=== PATIENT | female | born 1945 | race Caucasian/White ===

== ENCOUNTER 2016-12-29 17:35 | Inpatient (IN) ==
[2016-12-29] MEDS ORDERED: DUONEB (A & A) INH ONE (18:18)
--- NOTE | 2016-12-29 18:39 | PROVIDER DOCUMENTATION ---
HPI-Abdominal Pain/GI Problem - General Source: patient - History of Present Illness-ABD Nature of Presenting Problems: 71 y/o F complains of blood in stool that began this morning at 1am. Hx of polyps and hemorrhoids. Last scope was > 5 yrs and negative. Additinal complaints is COPD saying chest tightness. She states she will pass some blood when she coughs Pain Radiation: reports: no radiation Quality of Pain: reports: none Onset/Duration: reports: this morning Timing: reports: still present Modifying Factors: improves with: nothing Associated Symptoms: reports: cough. denies: diarrhea, nausea Dark Stools Present?: reports: bright red blood <William Richardson - Last Filed: 12/29/16 20:08> <Cali Colbert - Last Filed: 12/29/16 21:31> - General Chief Complaint: Rectal Bleeding Stated Complaint: BLOOD IN STOOLS Time Seen by Provider: 12/29/16 18:11 Allergies/Adverse Reactions: Patient Allergies Allergy/AdvReac Type Severity Reaction Status Date / Time No Known Allergies Allergy Verified 12/30/13 13:13 Home Medications: Home Medication List Medication Instructions Recorded Confirmed Last Taken Type ATORVAstatin [Lipitor] 40 mg PO QHS 12/30/13 10/31/14 Unknown History Albuterol 2.5MG/Ipratrop 0.5MG ml INH Q4-6H PRN PRN 12/30/13 10/31/14 Unknown History [Duoneb] Albuterol 2.5MG/Ipratrop 0.5MG 3 ml INH Q4H PRN PRN #120 neb 12/30/13 10/31/14 Unknown Rx [Duoneb] Clonazepam [Klonopin] 1 mg PO 12/30/13 10/31/14 Unknown History Review of Systems - Adult - REVIEW OF SYSTEMS - ADULT Constitutional: denies: chills, fever Eyes: reports: no symptoms reported Ears, Nose, Mouth & Throat: reports: no symptoms reported Cardiovascular: reports: no symptoms reported Respiratory: reports: cough, shortness of breath. denies: wheezing Gastrointestinal: reports: abdominal pain, rectal bleeding. denies: nausea, vomiting Genitourinary: reports: no symptoms reported Musculoskeletal: reports: no symptoms reported Integumentary: reports: no symptoms reported Neurological: reports: no symptoms reported Psychiatric: reports: no symptoms reported Endocrine: reports: no symptoms reported Hematologic/Lymphatic: reports: no symptoms reported Allergic/Immunologic: reports: no symptoms reported All Other Systems: Reviewed and Negative <Bala Richardsonin Filed: 12/29/16 20:08> Past History - Adult - PAST MEDICAL HISTORY-ADULT Review of Records: reports: Old Records Reviewed, Nursing Assessment Review, Medications Reviewed Major Childhood Illnesses: reports: denies history Cardiovascular: reports: denies history Respiratory: reports: COPD Gastrointestinal: reports: denies history Obstetrical/Gynecological: reports: denies history Genitourinary: reports: denies history Musculoskeletal: reports: denies history Neurological: reports: denies history Psychiatric: reports: denies history Endocrine/Immune: reports: denies history Other Conditions: reports: denies history - PRIOR SURGERIES/PROCEDURES Surgical/Procedure History: reports: cholecystectomy, hysterectomy - PRIOR HOSPITALIZATIONS Prior Hospitalizations: reports: none - IMMUNIZATION STATUS Childhood Immunizations: See Nurse Assessment Flu Vaccine: See Nurse Assessment - FAMILY HISTORY Family History: reviewed, not pertinent - SOCIAL HISTORY Smoking: cigarettes, less than 1 pack/day Substance Use: alcohol Alcohol Use Frequency: rarely Living Situation: family <William Richardson Filed: 12/29/16 20:08> Physical Exam-General - PHYSICAL EXAM-ADULT Initial Vital Signs Reviewed: Yes - CONSTITUTIONAL General Appearance: appears well, alert, no apparent distress - EYES Eyes: PERRL/EOMI, pink conjunctivae - HEAD, EARS, NOSE, MOUTH & THROAT HENMT: moist mucous membranes, normal ENT inspection, TMs normal, pharynx normal - NECK Neck: non-tender, full range of motion, supple, normal inspection - RESPIRATORY Respiratory: no respiratory distress, no accessory muscle use, decreased breath sounds (all lung field, Tight not moving much air). negative: wheezing - CARDIOVASCULAR Cardiovascular: normal peripheral pulses, regular rate, rhythm - GASTROINTESTINAL (ABDOMEN) Abdominal Exam: normal bowel sounds, non tender, soft - MUSCULOSKELETAL Back Exam: normal inspection, no CVA tenderness, no vertebral tenderness Extremity: normal range of motion, non-tender, normal gait, normal inspection - SKIN Integumentary: normal color, normal turgor, warm/dry - NEUROLOGIC Neurologic: grossly normal, no motor/sensory deficits - PSYCHIATRIC Psych/Mental Status: normal mood/affect, normal thought content, normal thought process, oriented x 3 <William Richardson - Last Filed: 12/29/16 20:08> - GENITOURINARY Rectal Exam: normal rectal tone, blood streaked stool, hemorrhoids, tenderness Hemoccult Exam: heme positive stool (candice red blood on exam) <Cali Colbert - Last Filed: 12/29/16 21:31> Progress - XRAY 1 XRAY Study: Chest Impression: Abnormal XRAY Interpretation: Increase heart silhouette, no acute finding per Dr Torres <William Richardson - Last Filed: 12/29/16 20:08> - REASSESSMENT Reassessment #1 Time Reassessed: 19:16 (Received call from lab that the hemeoccult card was testing negative however it appeared to be candice red blood on the card. environmental engineering technician states she believes the test is incorrect due to lubricant used during the rectal exam. Rectal exam had candice red blood.) - CT/MRI 1 CT Study: Abdomen, Pelvis Impression: Abnormal (Moderate to severe L colitis, particularly along descending colon, no abscess, no free air, colonic diverticulosis, tortuous and mildly ectatic aorta with atheromatous changes - radiology) - CONSULTS/PCP/HOSPITALIST Notification #1 *Consult/PCP/Hospitalist*: Dr. Nuñez (GI) Time Discussed: 21:21 Reason/Comments: Admit to [facility]. He will see her in the morning. #2 Consult: Dr. Cantu (PCP) Time Discussed: 21:28 Reason/Comments: Admit to [facility] <Cali Colbert - Last Filed: 12/29/16 21:31> Departure <William Richardson - Last Filed: 12/29/16 20:08> - Departure Time of Disposition Order: 21:25 Certified Medical Emergency: Emergent <Cali Colbert - Last Filed: 12/29/16 21:31> - Departure DIAGNOSIS: Colitis GI bleed Qualifiers: GI bleed type/associated pathology: unspecified gastrointestinal hemorrhage type Qualified Code(s): K92.2 - Gastrointestinal hemorrhage, unspecified Disposition: ADMITTED INPATIENT 09 Condition: Stable Referrals: None,PCP [Primary Care Provider] - Attestation - Scribe Verification/Attestation Scribe:: William Richardson Acting as Scribe for:: Cali Colbert Scribe documention review:: This chart was documented by a scribe and accurately reflects the service the provider performed and the decisions made by the provider. <William Richardson - Last Filed: 12/29/16 20:08> - Physician/ POWER Attestation Patient care was provided by Advanced Practice Provider:: Yes Advanced Practice Provider:: Cali Colbert Advanced Practice Provider documentation review:: The Mid-level provider documentation, treatment plan and medical decision making was reviewed by the physician who agrees with all treatment and medical decision making by the P. <Cali Colbert - Last Filed: 12/29/16 21:31> Physician Attestation - Physician Attestation I, the provider, attest to the following statement:: Cali Colbert Physician documentation Attestation:: This documentation recorded by the scribe accurately reflects the service I personally performed and the decisions made by me. <Cali Colbert - Last Filed: 12/29/16 21:31>
[2016-12-29 18:50] LABS: MANUAL DIFF NEEDED? NO
[2016-12-29 18:55] LABS: BASO% 0.1 % (0.0-0.8); EOS# 0.12 X1000 (0.0-0.7); EOS% 0.9 % (0.0-10.0); HEMOGLOBIN 13.9 g/dL (12.0-16.0); IMM GRAN# 0.02 X1000 (0.0-0.04); IMM GRAN% 0.1 % (0.0-0.5); LYMPH# 1.54 X1000 (1.2-3.4); LYMPH% 11.3 % (20.5-51.1); MCH 31.2 PG (27-31); MCHC 33.1 g/dL (33-37); MCV 94.4 FL (81-99); MONO# 0.98 X1000 (0.11-0.59); MONO% 7.2 % (1.7-9.3); MPV 10.5 FL (7.4-10.4); NEUT% 80.4 % (42.2-75.2); PLT 177 X1000 (130-400); RBC 4.45 XMIL (4.2-5.4)
[2016-12-29] MEDS: NS 1,000 ML IV PRN (18:57)
[2016-12-29 19:11] LABS: INR 1.01 (0.86-1.15); PROTIME 13.6 Seconds (12.1-15.5)
[2016-12-29 19:12] LABS: PTT PL 29.7 Seconds (22.6-43.9)
[2016-12-29 19:17] LABS: AGAP 11; ALKALINE PHOSPHATASE 93 U/L (32-104); BUN 17 mg/dL (8-22); CALCIUM 9.2 mg/dL (8.8-10.2); CHLORIDE 103 mmol/L (98-107); COSMO 281; GOT 28 U/L (10-30); GPT 29 U/L (10-36); POTASSIUM 4.1 mmol/L (3.5-5.1); SODIUM 140 mmol/L (136-145); TCO2 26 mmol/L (25-35); TOTAL PROTEIN 6.8 g/dL (6.3-8.3)
[2016-12-29] MEDS ORDERED: ZOSYN 3.375 GM/NS 50 ML IV ONE (21:09)
[2016-12-29] MEDS ORDERED: FLAGYL 500 MG/NS 100 ML IV ONE (21:09)
[2016-12-29] MEDS ORDERED: SODIUM CHLORIDE 0.9% INJ ONE (21:10)
[2016-12-29] MEDS ORDERED: PROTONIX IV ONE (21:10)
[2016-12-29] MEDS ORDERED: ZOFRAN IV PRN (21:28)
[2016-12-30 05:57] LABS: MANUAL DIFF NEEDED? NO
--- NOTE | 2016-12-30 08:19 | Diag Imaging Result Document ---
PROCEDURE NAME: CHEST-2 VIEWS - 12/29/2016 FRONTAL AND LATERAL CHEST, TWO VIEWS: COMPARISON: 10/31/2016. FINDINGS: There are peripherally calcified bilateral breast implants. The lungs are well expanded. The heart is mildly prominent. There are mild increased interstitial markings. No consolidation. No pleural effusions. Mild compression fracture to a mid thoracic vertebra. This is unchanged. IMPRESSION: I believe there is a combination of fibrosis and mild pulmonary edema, but no pneumonia.
--- NOTE | 2016-12-30 08:30 | Diag Imaging Result Document ---
PROCEDURE NAME: CT ABD/PELVIS W/ IV CONT ONLY - 12/29/2016 CT ABDOMEN AND PELVIS WITH INTRAVENOUS CONTRAST. DOSE REDUCTION PROTOCOL. FINDINGS: The heart is mildly enlarged. On the very first image is a 10 mm nodule versus vascular prominence. Normal spleen and adrenal glands. No abnormality to the pancreas or gallbladder. Normal liver. Normal enhancement of the kidneys. No hydronephrosis. Tortuous abdominal aorta with mild dilatation measuring 3.0 cm. No bowel obstruction. There is thickening to the wall of the descending and proximal sigmoid colon with mild adjacent inflammation. There are scattered diverticula throughout the colon. No inflammation about the appendix. The appendix measures 7 mm in diameter. No free air. The urinary bladder is distended and appears normal. The uterus has been removed. No pelvic mass. IMPRESSION: 1. Colitis primarily involving the descending colon. 2. Small abdominal aortic aneurysm. 3. Diverticulosis. 4. Hysterectomy. 5. There appears to be a nodule in the right lower lobe. Chest CT is suggested. A preliminary report was given at 8:29 p.m..
[2016-12-30 09:52] LABS: BASO% 0.2 % (0.0-0.8); EOS# 0.16 X1000 (0.0-0.7); EOS% 1.6 % (0.0-10.0); HEMATOCRIT 41.1 % (37.0-47.0); HEMOGLOBIN 13.1 g/dL (12.0-16.0); IMM GRAN# 0.01 X1000 (0.0-0.04); IMM GRAN% 0.1 % (0.0-0.5); LYMPH# 2.01 X1000 (1.2-3.4); LYMPH% 19.9 % (20.5-51.1); MCH 30.8 PG (27-31); MCHC 31.9 g/dL (33-37); MCV 96.5 FL (81-99); MONO# 0.79 X1000 (0.11-0.59); MONO% 7.8 % (1.7-9.3); MPV 10.7 FL (7.4-10.4); NEUT% 70.4 % (42.2-75.2); PLT 146 X1000 (130-400); RBC 4.26 XMIL (4.2-5.4)
[2016-12-30] MEDS: NORCO-5 PO PRN (11:50)
[2016-12-30] MEDS: NS 1,000 ML IV PRN ×2 (12:21→21:54)
--- NOTE | 2016-12-30 15:27 | Diag Imaging Result Document ---
PROCEDURE NAME: CT THORAX W/CONTRAST - 12/30/2016 CT CHEST WITH IV CONTRAST: COMPARISON: None available. FINDINGS: There are fairly extensive emphysematous changes with an apical predominance. At the anterior aspect of the right lower lobe abutting the fissure, there is a 9.3 mm noncalcified nodule that was also seen on a recent CT of the abdomen and pelvis performed yesterday. Its margins are vaguely spiculated. Although it is possible that this represents focal nodular scarring, neoplasm cannot be excluded. This nodule is probably too small and deep to be reasonably amenable to CT-guided biopsy at this time. Based on Esther Society Criteria , an initial follow- up chest CT is recommended in 3 months to assess stability. PET scan may also be helpful. Otherwise, the subsegmental atelectasis at the right lung base has worsened since the previous study; however, it is still mild. There is focal scarring at the lower left lung apex. No other definite suspicious nodules are identified. There are no pleural fluid collections and there is no pneumothorax. There is extensive aortic atherosclerotic disease with calcification and ulcerated plaques. There is no evidence of significant mediastinal or hilar adenopathy. There are a few shotty small lymph nodes involving the mediastinum. IMPRESSION: 1. Pulmonary emphysema. 2. 9.3 mm spiculated nodule involving the right lower lobe as described. ( Image 104 of series 3). Please see above discussion. 3. Mild subsegmental atelectasis at the right lung has worsened since yesterday' s abdominal CT. 4. Other incidental/nonacute findings detailed above. [facility]
[2016-12-30] MEDS: TYLENOL PO PRN ×2 (17:58→21:53)
[2016-12-30] MEDS: DUONEB (A & A) INH PRN (19:31)
[2016-12-30] MEDS ORDERED: LIPITOR PO SCH (21:00)
[2016-12-30] MEDS: TESSALON PO SCH (21:53)
[2016-12-31] MEDS: NORCO-5 PO PRN (03:50)
[2016-12-31] MEDS: NS 1,000 ML IV PRN ×2 (06:16→15:18)
[2016-12-31] MEDS: DUONEB (A & A) INH PRN (07:52)
[2016-12-31] MEDS: TESSALON PO SCH (08:15)
[2016-12-31] MEDS ORDERED: FLEXERIL PO SCH (09:00)
[2016-12-31] MEDS ORDERED: KLONOPIN PO SCH (09:00)
[2016-12-31] MEDS ORDERED: SINGULAIR PO SCH (09:00)
[2016-12-31 15:16] VITALS: BP 157/84
--- NOTE | 2017-01-15 16:39 | HISTORY AND PHYSICAL ---
She is a 71-year-old, white female, whom I am following for a long time with serious COPD and a history of smoking who presented complaining of blood in her stools that began approximately 1 a.m. She has a distant history of polyps and hemorrhoids demonstrated by colonoscopies. Her last scope was greater than 5 years ago and was deemed to be negative. She also has some tightness in her chest associated with her COPD and she stated she would pass some blood from her rectum when she coughed. She had no significant pain associated with this bright red bleeding. No fever. No chills. So she was concerned about it, presented to the emergency room with that particular history. ALLERGIES: She has no known allergies. HER CURRENT MEDICATIONS: Lipitor 40 at bedtime, albuterol ipratropium treatments and Klonopin. REVIEW OF SYSTEMS: She denies any fevers, chills, night sweats, weight gain, weight loss.Eyes: No change in visual zuniga. No irritation of her eyes. No history of glaucoma. Ears Nose and Throat: No pharyngitis, otitis or sinusitis. Cardiovascular: She denies any chest pain, has a tightness in her chest associated with her breathing. No sense of palpitations, edema, PND, orthopnea or claudication. Respiratory: She is always coughing, always short of breath. She has not been wheezing of late. She stopped smoking. Gastrointestinal: She denies any nausea, vomiting. She has some vague pain and rectal bleeding. The pain is generalized to the lower quadrants. : No dysuria, hematuria, polyuria, or pyuria. Musculoskeletal: No myalgias or arthralgias. Skin: Clear. Neurological: No focal deficits. No seizure disorder. No headaches. No syncopal episodes. Psychiatric: Negative. Endocrine: No polyuria, polydipsia, polyphagia. Hematological/lymphatics: She has no bleeding or clotting disorder whatsoever. Has not had bright red bleeding previously. Allergic/immunologic: She does not have asthma. She has probably COPD strictly related to smoking. Allergies: She has no history of any significant immunological problem. PAST MEDICAL HISTORY: She has COPD. Otherwise no significant health problems. She does have dyslipidemia. SOCIAL HISTORY: She smokes currently less than a pack a day. Drinks alcohol on occasions. Lives with her who has prostate cancer. PHYSICAL EXAMINATION: At the time of this admission her head was normocephalic. Eyes were PERRLA. EOM intact. Sclerae clear. Fundi benign. Nares patent. Oropharynx negative. NECK: Supple. Bounding carotids without thyromegaly and midline trachea without bruits. CHEST: Increased AP diameter, diminished breath sounds bilaterally. CARDIOVASCULAR: Distant heart sounds. Regular rhythm and rate. No murmurs, gallops, clicks, or rubs. ABDOMEN: Distended. Positive bowel sounds. No rebound. No significant guarding. Stools were positive blood. EXTREMITIES: Were negative. ADMITTING DIAGNOSES: 1. Hematochezia. 2. Chronic obstructive pulmonary disease. 3. Dyslipidemia. cc: Matias Cantu MD
== END 2016-12-31 17:55 | disposition home or self-care (01) ==
LOC: P.ED 17:35 → P.MEDSURG 21:34 → P.DIRADM 12-30 14:40 → P.MEDSURG 12-30 14:48
PROVIDERS: ADMIT Internal Medicine; ATTEND Internal Medicine